=== PATIENT | female | born 1985 | race Caucasian/White ===

== ENCOUNTER → 2018-04-07 | Outpatient (CLI) | payer OTHER ==
--- NOTE | 2018-04-07 14:49 | US ---
EXAMINATION TYPE: US pelvic complete DATE OF EXAM: 04/07/2018 COMPARISON: NONE CLINICAL HISTORY: R10.2 Pelvic pain, N94.6 Dysmenorrhea. RLQ pain TECHNIQUE: . Transabdominal sonographic images of the pelvis were acquired. Date of LMP: About 2 weeks ago EXAM MEASUREMENTS: Uterus: 8.8 x 4.2 x 5.2 cm Endometrial Stripe: 0.8 cm Right Ovary: 3.9 x 2.6 x 2.7 cm Left Ovary: 2.9 x 2.6 x 2.7 cm 1. Uterus: Anteverted wnl 2. Endometrium: wnl 3. Right Ovary: Cystic area visualized measuring 2.1 x 1.9 x 1.4 cm 4. Left Ovary: wnl 5. Bilateral Adnexa: wnl 6. Posterior cul-de-sac: wnl Urinary bladder is sonolucent. Posterior wall is normal. IMPRESSION: 1. Right ovarian cyst
== END | disposition home or self-care (01) ==
LOC: RADUSWWP 10:20
PROVIDERS: ATTEND Obstetrics & Gynecology
DX: N83.201 Unspecified ovarian cyst, right side (principal); N94.6 Dysmenorrhea, unspecified
CPT/HCPCS: 76856